=== PATIENT | male | born 1965 | race Caucasian/White ===

== ENCOUNTER 2020-11-08 20:36 | Emergency (ER) | payer MEDICAID ==
[~2020-11-08] VITALS: Ht 165.1 cm; Wt 78.9 kg
[2020-11-08 21:00] VITALS: BP 168/106
--- NOTE | 2020-11-08 21:00 | NUR ---
TO TENT #01 AMBULATORY
--- NOTE | 2020-11-08 21:10 | NUR ---
SEEN AND EXAMINED BY JOAQUINA WITH ORDER AND CARRIED OUT
--- NOTE | 2020-11-08 21:15 | NUR ---
SWAB DONE AND SEND TO LAB
[2020-11-08 21:30] VITALS: BP 168/106
--- NOTE | 2020-11-08 21:30 | NUR ---
Patient discharged with v/s stable. Written and verbal after care instructions given and explained. Patient alert, oriented and verbalized understanding of instructions. Ambulatory with steady gait. All questions addressed prior to discharge. ID band removed. Patient advised to follow up with PMD. Rx of MUCINEX, NAPROSYN given. Patient educated on indication of medication including possible reaction and side effects. Opportunity to ask questions provided and answered.
== END 2020-11-08 21:30 | disposition home or self-care (01) ==
LOC: MED 20:36
DX: U07.1 COVID-19 (principal); J06.9 Acute upper respiratory infection, unspecified
CPT/HCPCS: 99283; U0003